=== PATIENT | female | born 1975 | race Caucasian/White ===

== ENCOUNTER → 2021-01-09 | Outpatient (CLI) | payer BC | LOC: KOH-I 12:15 | DX: M25.552 Pain in left hip (principal); M54.10 Radiculopathy, site unspecified | CPT/HCPCS: 72100; 73502; 73552 ==

== ENCOUNTER → 2021-01-26 | Outpatient (CLI) | payer BC | LOC: EMI 13:00 | DX: M25.552 Pain in left hip (principal); M54.10 Radiculopathy, site unspecified; R93.6 Abnormal findings on diagnostic imaging of limbs | CPT/HCPCS: 73721 ==